=== PATIENT | male | born 1960 | race Caucasian/White ===

== ENCOUNTER 2018-07-29 10:02 | Inpatient (IN) | payer BC ==
[~2018-07-29] VITALS: Ht 172.7 cm; Wt 91.2 kg
[2018-07-29] MEDS ORDERED: ALTEPLASE 50 MG/VIAL (29 MILLION IU) IV ONE ×2 (10:15)
[2018-07-29] MEDS ORDERED: ATENOLOL50 MG PO (10:29)
[2018-07-29] MEDS ORDERED: LANTUS 3ML100 UNITS/ SQ (10:29)
[2018-07-29] MEDS ORDERED: LOVASTATIN20 MG PO (10:29)
[2018-07-29] MEDS ORDERED: GLIPIZIDE10 MG PO (10:29)
[2018-07-29] MEDS ORDERED: METFORMIN HCL500 MG PO (10:29)
[2018-07-29] MEDS ORDERED: METOPROLOL SUCC50 MG PO (10:29)
[2018-07-29] MEDS ORDERED: ESIDRIX25 MG PO (10:29)
[2018-07-29 10:31] LABS: BASOPHILS # (AUTO) 0.1 (0.0-0.1); BASOPHILS % 0.5 % (0.0-1.0); EOSINOPHILS # (AUTO) 0.1 (0.0-0.4); EOSINOPHILS % 0.6 % (0.0-6.0); HEMOGLOBIN 14.5 g/dL (14.0-18.0); LYMPHOCYTES # (AUTO) 2.2 (1.0-3.2); LYMPHOCYTES % 12.8 % (18.0-39.1); MEAN CORPUSCULAR HEMOGLOBIN 28.4 pg (28-32); MEAN CORPUSCULAR VOLUME 86.1 fL (81-99); MONOCYTES # (AUTO) 1.3 (0.2-0.8); MONOCYTES % 7.6 % (4.4-11.3); NEUTROPHILS # (AUTO) 13.2 (2.1-6.9); NEUTROPHILS % 77.7 % (38.7-80.0); PLATELET COUNT 379 x10e3/uL (140-360); RED BLOOD COUNT 5.11 x10e6/uL (4.3-5.7); RED CELL DISTRIBUTION WIDTH 12.2 % (11.7-14.4)
--- NOTE | 2018-07-29 10:40 | Diagnostic Imaging Report ---
History:Slurred speech, left side weakness Comparison studies:None Technique: Axial images were obtained from the skull base to the vertex. Coronal and sagittal images reconstructed from the axial data. Intravenous contrast: None Dose modulation, iterative reconstruction, and/or weight based adjustment of the mA/kV was utilized to reduce the radiation dose to as low as reasonably achievable. Findings: Scalp/skull: No abnormalities. Extra-axial spaces: No masses. No fluid collections. Brain sulci: Age-appropriate. Ventricles: Age-appropriate. No hydrocephalus. Parenchyma: Scattered small hypodensities in the supratentorial white matter are small vessel ischemic changes. No masses, hemorrhage, acute or chronic cortical vascular insults. Sellar/suprasellar region: No abnormalities. Craniocervical junction: Patent foramen magnum. No Chiari one malformation. Incidental findings: Atherosclerotic calcifications in the carotid siphons . Impression: No acute abnormalities. Chronic findings: 1. Mild supratentorial white matter small vessel ischemic changes. Signed by: DR Ben Domínguez M.D. on 07/29/2018 10:37 AM
[2018-07-29 10:41] LABS: INR 1.02; PROTHROMBIN TIME 14.3 seconds (11.9-14.5)
[2018-07-29 10:42] LABS: PARTIAL THROMBOPLASTIN TIME 31.8 seconds (23.8-35.5)
[2018-07-29 10:51] LABS: ALBUMIN 3.7 g/dL (3.5-5.0); ALBUMIN/GLOBULIN RATIO 0.8 (0.8-2.0); ANION GAP 14.9 mmol/L (8-16); CALCIUM 9.4 mg/dL (8.4-10.2); CREATININE, SERUM 1.52 mg/dL (0.72-1.25); POTASSIUM 3.9 mmol/L (3.5-5.1)
[2018-07-29 10:57] LABS: CREATINE KINASE MB 1.6 ng/mL (0-5.0)
[2018-07-29] MEDS ORDERED: ONDANSETRON HCL INJ 2 MG/ML VIAL IV PRN (11:00)
[2018-07-29] MEDS ORDERED: SODIUM CHLORIDE FLUSH 10 ML SYR INJ PRN (11:00)
[2018-07-29] MEDS ORDERED: DEXTROSE 50% SYRINGE 50 ML IV PRN (11:00)
[2018-07-29] MEDS ORDERED: ACETAMINOPHEN 325 MG TAB PO PRN (11:15)
[2018-07-29] MEDS ORDERED: DIPHENHYDRAMINE HCL INJ 50 MG/ML VIAL IV PRN (11:15)
[2018-07-29] MEDS ORDERED: LACTULOSE SYRUP 20 GM/30 ML UDC PO PRN (11:15)
[2018-07-29] MEDS: INSULIN REGULAR, HUMAN 100 UNIT/1 ML 3ML VIAL SQ SCH ×3 (11:30→20:33)
--- OUTSIDE RECORDS SUMMARY | 2018-07-29 11:50 | XMS REPORT ---
Author Author [facility] Address Unknown Phone Unavailable Care Team Providers Care Stone Gang Sawyer Name Role Phone Aiyana HODGES Unavailable Unavailable Problems This patient has no known problems. Allergies, Adverse Reactions, Alerts This patient has no known allergies or adverse reactions. Medications This patient has no known medications. Results Test Description Test Time Test Comments Text Results Atomic Results Result Comments CT BRAIN WO 2018-07-29 10:32:00 [place] [address] Patient Name: ALINE VILLARREAL MR #: [id number] : 1960 Age/Sex: 57/M Req #: [id number] Adm Physician: Ordered by: JING HODGES MD Report #: [id number] Location: ER Room/Bed: Procedure: [id number] CT/CT BRAIN WO Exam Date: 07/29/18 Exam Time: 1005 REPORT STATUS: Signed History:Slurred speech, left side weakness Comparison studie s:None Technique: Axial images were obtained from the skull base to the vertex. Coronal and sagittal images reconstructed from the axial data. Intravenous contrast: None Dose modulation, iterative reconstruction, and/or weight based adjustment of the mA/kV was utilized to reduce the radiation dose to as low as reasonably achievable. Findings: Scalp/skull: No abnormalities. Extra-axial spaces: No masses. No fluid collections. Brain sulci: Age-appropriate. Ventricles: Age-appropriate. No hydrocephalus. Parenchyma: Scattered small hypodensities in the supratentorial white matter are small vessel ischemic changes. No masses, hemorrhage, acute or chronic cortical vascular insults. Sellar/suprasellar region: No abnormalities. Craniocervical junction: Patent foramen magnum. No Chiari one malformation. Incidental findings: Atherosclerotic calcifications in the carotid siphons . Impression: No acute abnormalities. Chronic findings: 1. Mild supratentorial white matter small vessel ischemic changes. Signed by: DR Ben Domínguez M.D. on 07/29/2018 10:37 AM Dictated By: BEN BULLARD MD [id number] Transcribed By: MITCHELL on 07/29/18 1037 COPY TO: JING HODGES MD
[2018-07-29 12:00] VITALS: BP 148/64
[2018-07-29] MEDS ORDERED: ASPIRIN 325 MG TAB PO ONE ×2 (12:00→15:45)
[2018-07-29] MEDS ORDERED: GADOBENATE DIMEGLUMINE 1 ML IV ONE (12:27)
[2018-07-29] MEDS ORDERED: SODIUM CHLORIDE 0.9% 50ML 50 ML ONE (12:27)
[2018-07-29 14:46] VITALS: BP 148/64
--- NOTE | 2018-07-29 14:53 | Diagnostic Imaging Report ---
History: Slurred speech, right-sided numbness Comparison studies: CT head 07/29/2018 Technique: Pre-contrast: Sagittal T2; axial T1-IR, MPGR, DWI, T2 FLAIR. Post-contrast: axial and coronal T1. 2-D cervical and 3-D intracranial [id number] MRA's . Power injected MRA of the neck Intravenous contrast: 20 cc of MultiHance Findings: Brain: Scalp: No abnormal signal. No masses. Bone marrow: Normal in signal intensity. Brain sulci: Mildly prominent . Ventricles: Normal in size . No hydrocephalus. Parenchyma: Restricted diffusion is seen at the left inferior precentral gyrus without significant FLAIR signal intensity abnormality. Scattered T2/flair periventricular and deep white matter hyperintensities. No masses or hemorrhage. Suprasellar region: No abnormalities. Craniocervical junction: No abnormalities. Patent foramen magnum. No Chiari one malformation. Vessels: Normal flow-voids in the arteries and sinuses. Cervical MRA: Carotid arteries: No flow abnormalities . Vertebral arteries: Patent right. No enhancement or flow of the left vertebral artery . Intracranial MRA: Internal carotid arteries: No flow abnormalities . Patent ACAs and MCAs Vertebrobasilar circulation: No flow abnormalities . 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 Anatomical variants: Acom: Visualized. Pcoms: Visualized bilaterally. Vertebral arteries: Patent right. IMPRESSION: Brain: 1. Acute infarct in the left inferior precentral gyrus 2. No intracranial hemorrhage, mass effect or herniation. 3. Mild chronic microvascular ischemic changes of the white matter Cervical and intracranial MRAs: 1. No flow or enhancement of the left vertebral artery. The remaining MRA neck and normal 2. Normal MRA of the [place] Signed by: DR Ben Domínguez M.D. on 07/29/2018 2:49 PM
--- NOTE | 2018-07-29 15:12 | History and Physical ---
PRIMARY CARE PHYSICIAN: Dr. Arpit Wing. CHIEF COMPLAINT: Difficulty moving the right arm and facial paralysis on the right side. HISTORY OF PRESENT ILLNESS: The patient is a 57-year-old man. He has a history of diabetes. He uses insulin at home. He woke up this morning around 9 a.m. with difficulty moving his right arm. He also noticed a facial droop and some difficulty speaking. He denied any headache. He did not have any chest pain. He denies any prior incidence of strokes. He has never had any heart disease that he knows. He has never been in a hospital before. He was evaluated in the emergency department. He had a CTA that showed no active disease. He was felt not to be a candidate for thrombolytics because of his unclear onset of the timing because of the vague time course and waking up with the symptoms. PAST MEDICAL HISTORY 1. Diabetes. 2. No prior history of heart disease or strokes. SOCIAL HISTORY: The patient has never been a smoker. He is not a drinker. ALLERGIES: THE PATIENT HAS NO KNOWN DRUG ALLERGIES. FAMILY HISTORY: Noncontributory. REVIEW OF SYSTEMS: There is no fever. He has no headache or neck pain. He has no chest pain. He has no difficulty breathing. He is not complaining of any abdominal pain. There is no nausea or vomiting. There is no leg edema. He does complain of difficulty moving his right arm and some difficulty speaking. PHYSICAL EXAMINATION VITAL SIGNS: The patient is afebrile. The vital signs are stable. HEENT: Shows no facial swelling or erythema. The nasal mucosa is normal. The oropharynx is normal. LYMPHATIC: Shows no submandibular, cervical or supraclavicular adenopathy. CARDIAC: Reveals a regular rate and rhythm with a normal S1 and S2. There are no murmurs or rubs. RESPIRATORY: Auscultation of lungs shows clear breath sounds bilaterally. There is no wheezing. ABDOMEN: Soft, nontender. There is no rebound or guarding. EXTREMITIES: Show no leg edema or calf tenderness. There is no cyanosis or clubbing. SKIN: No rashes. NEUROLOGIC: Show partial paralysis of the right upper extremity and a right central facial droop. He also has some dysarthria. IMPRESSION 1. Acute left middle cerebral artery stroke. 2. Diabetes. 3. Acute kidney injury. 4. Elevated troponin. PLAN 1. The patient will begin antiplatelet therapy. 2. Neurology consultation. 3. Echocardiogram and carotid Doppler studies. 4. Cardiology consultation. 5. Lipid analysis. 6. Continue current diabetic regimen. Job#: [id number] RUDI
[2018-07-29] MEDS ORDERED: HEPARIN 25,000 UNIT/D5W 250ML 250 ML IV SCH ×2 (16:00→23:45)
[2018-07-29 16:45] VITALS: BP 136/65
[2018-07-29] MEDS: FAMOTIDINE 20 MG TAB PO SCH (16:55)
[2018-07-29] MEDS: GLIPIZIDE 5 MG TAB PO SCH (16:55)
[2018-07-29] MEDS: METOPROLOL SUCCINATE 50 MG TAB XL PO SCH (16:55)
[2018-07-29] MEDS: METFORMIN HCL 500 MG TAB PO SCH (16:55)
--- NOTE | 2018-07-29 17:22 | Diagnostic Imaging Report ---
History: Slurred speech, right-sided numbness Comparison studies: CT head 07/29/2018 Technique: Pre-contrast: Sagittal T2; axial T1-IR, MPGR, DWI, T2 FLAIR. Post-contrast: axial and coronal T1. 2-D cervical and 3-D intracranial itdt-gs-[id number] MRA's . Power injected MRA of the neck Intravenous contrast: 20 cc of MultiHance Findings: Brain: Scalp: No abnormal signal. No masses. Bone marrow: Normal in signal intensity. Brain sulci: Mildly prominent . Ventricles: Normal in size . No hydrocephalus. Parenchyma: Restricted diffusion is seen at the left inferior precentral gyrus without significant FLAIR signal intensity abnormality. Scattered T2/flair periventricular and deep white matter hyperintensities. No masses or hemorrhage. Suprasellar region: No abnormalities. Craniocervical junction: No abnormalities. Patent foramen magnum. No Chiari one malformation. Vessels: Normal flow-voids in the arteries and sinuses. Cervical MRA: Carotid arteries: No flow abnormalities . Vertebral arteries: Patent right. No enhancement or flow of the left vertebral artery . Intracranial MRA: Internal carotid arteries: No flow abnormalities . Patent ACAs and MCAs Vertebrobasilar circulation: No flow abnormalities . 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 Anatomical variants: Acom: Visualized. Pcoms: Visualized bilaterally. Vertebral arteries: Patent right. IMPRESSION: Brain: 1. Acute infarct in the left inferior precentral gyrus 2. No intracranial hemorrhage, mass effect or herniation. 3. Mild chronic microvascular ischemic changes of the white matter Cervical and intracranial MRAs: 1. No flow or enhancement of the left vertebral artery. The remaining MRA neck and normal 2. Normal MRA of the [place] Signed by: DR Ben Domínguez M.D. on 07/29/2018 5:19 PM
--- NOTE | 2018-07-29 17:22 | Diagnostic Imaging Report ---
History: Slurred speech, right-sided numbness Comparison studies: CT head 07/29/2018 Technique: Pre-contrast: Sagittal T2; axial T1-IR, MPGR, DWI, T2 FLAIR. Post-contrast: axial and coronal T1. 2-D cervical and 3-D intracranial [id number] MRA's . Power injected MRA of the neck Intravenous contrast: 20 cc of MultiHance Findings: Brain: Scalp: No abnormal signal. No masses. Bone marrow: Normal in signal intensity. Brain sulci: Mildly prominent . Ventricles: Normal in size . No hydrocephalus. Parenchyma: Restricted diffusion is seen at the left inferior precentral gyrus without significant FLAIR signal intensity abnormality. Scattered T2/flair periventricular and deep white matter hyperintensities. No masses or hemorrhage. Suprasellar region: No abnormalities. Craniocervical junction: No abnormalities. Patent foramen magnum. No Chiari one malformation. Vessels: Normal flow-voids in the arteries and sinuses. Cervical MRA: Carotid arteries: No flow abnormalities . Vertebral arteries: Patent right. No enhancement or flow of the left vertebral artery . Intracranial MRA: Internal carotid arteries: No flow abnormalities . Patent ACAs and MCAs Vertebrobasilar circulation: No flow abnormalities . origin of the right RN CLINICAL REVIEW. Patent bilateral tool maker bench. Anatomical variants: Acom: Visualized. Pcoms: Visualized bilaterally. Vertebral arteries: Patent right. IMPRESSION: Brain: 1. Acute infarct in the left inferior precentral gyrus 2. No intracranial hemorrhage, mass effect or herniation. 3. Mild chronic microvascular ischemic changes of the white matter Cervical and intracranial MRAs: 1. No flow or enhancement of the left vertebral artery. The remaining MRA neck and normal 2. Normal MRA of the [place] Signed by: DR Ben Domínguez M.D. on 07/29/2018 5:19 PM
[2018-07-29 20:00] VITALS: BP 117/72
[2018-07-29 20:30] VITALS: BP 117/72
[2018-07-29] MEDS: SIMVASTATIN 20 MG TAB PO SCH (20:33)
--- NOTE | 2018-07-29 22:47 | Consultation ---
CARDIOLOGY CONSULTATION DATE OF CONSULTATION: July 29, 2018 ADMITTING PHYSICIAN: Dago Butt MD Thank you Dr. Dago Butt for this cardiac consultation. I have been called for interventional cardiology at [facility]. DIAGNOSES 1. Acute cerebrovascular accident, left middle cerebral artery region, right-sided weakness of the arm and some difficulty in speech. 2. History of type II diabetes mellitus. 3. History of hypertension. 4. Hyperlipidemia. 5. Troponin is 2.5, abnormal electrocardiogram. Non-Q myocardial infarction, acute. Mr. Shaun Lamb is a 57-year-old gentleman, able to talk, but the difficulty is he has got some dysarthria and the patient states he woke up this morning, found some weakness in the right arm and also difficulty to speak. Patient has no chest pain, no shortness of breath. No symptoms of any acute myocardial infarction, angina pectoris. Symptoms are predominantly neurological and patient has no history of stroke and no history of myocardial infarction. PAST MEDICAL HISTORY: He has a history of hypertension, hyperlipidemia, type II diabetes mellitus. His type II diabetes mellitus is there for last 20 years. SOCIAL HISTORY: He is working, but is not able to describe kind of work at this time. The patient is . is not here at this time. REVIEW OF SYSTEMS: Patient does not complain of chest pain. No shortness of breath. Patient has no history of thyroid problems or major surgeries. PHYSICAL EXAMINATION HEART: Normal. LUNGS: Normal. ABDOMEN: Normal. NEUROLOGIC: Weak in the right arm, but he is able to move the right arm and right leg. Patient has got some dysarthria, upper motor neuron; patient's right-sided face, but very weak at this time, but he is able to move the tongue at this time. DIAGNOSTIC DATA: His brain scan showed left-sided stroke. LAB DATA: Troponin is 2.5 and he has got a class III renal failure and patient's WBC count is slightly elevated. Hemoglobin is normal. IMPRESSION AND PLAN: At this time, I agree with medication like aspirin, anti-cholesterol medicine, and also add metoprolol. We will continue all the medications ordered by primary physician. He needs anticoagulant. I will wait for the neurologist to clear these anticoagulants. In the meantime, patient has no symptoms cardiac woodall. No chest pain. No breathing problem _ but EKG shows anterolateral ischemia. So, I will continue follow the patient, but quite stable and patient is in room #111, we will keep him here. I ordered a series of troponin and EKG , In the meantime, I will wait for the neurologist's opinion and possible starting on anticoagulants. Thank you again for this consultation. Job#: [id number] NASH OLIVERA
[2018-07-30] VITALS (7 sets, daily range): BP systolic 98–144; BP diastolic 66–81
[2018-07-30 06:23] LABS: ALBUMIN 2.9 g/dL (3.5-5.0); ALBUMIN/GLOBULIN RATIO 0.7 (0.8-2.0); ANION GAP 11.8 mmol/L (8-16); CREATININE, SERUM 1.26 mg/dL (0.72-1.25); POTASSIUM 3.8 mmol/L (3.5-5.1)
[2018-07-30 06:59] LABS: CHOL/HDL RATIO 3.7 (3.9-4.7)
[2018-07-30] MEDS: FAMOTIDINE 20 MG TAB PO SCH ×2 (08:20→16:29)
[2018-07-30] MEDS: GLIPIZIDE 5 MG TAB PO SCH ×2 (08:20→16:29)
[2018-07-30] MEDS: METOPROLOL SUCCINATE 50 MG TAB XL PO SCH ×2 (08:55→16:31)
[2018-07-30] MEDS: HYDROCHLOROTHIAZIDE 25 MG TAB PO SCH (08:55)
[2018-07-30] MEDS: METFORMIN HCL 500 MG TAB PO SCH ×2 (08:55→16:29)
[2018-07-30] MEDS: ASPIRIN 325 MG TAB EC PO SCH (08:55)
[2018-07-30] MEDS: INSULIN REGULAR, HUMAN 100 UNIT/1 ML 3ML VIAL SQ SCH ×4 (08:56→21:02)
[2018-07-30] MEDS ORDERED: INSULIN DETEMIR 100 UNIT/ML PEN SQ SCH (09:00)
--- NOTE | 2018-07-30 13:42 | Consultation ---
DATE OF CONSULTATION: July 30, 2018 NEUROLOGY CONSULTATION HISTORY OF PRESENT ILLNESS: Mr. Lamb is a 57-year-old right hand dominant man with past medical history significant for hypertension, a prior history of hyperlipidemia, and insulin-dependent diabetes mellitus admitted to [facility] on July 29, 2018, with a stroke. Mr. Lamb was last seen normal sometime between 2200 and 2230 on July 28, 2018. Upon awakening at 0900 on July 29, 2018, the patient experienced difficulty talking which is further described as dysarthria and expressive aphasia. Mr. Lamb endorses numbness over the right side of the face as well as in his right hand and arm. The patient does not report a visual field cut or other disturbance, facial droop, hemiparesis, gait or balance impairment, dizziness, or confusion. At the encouragement of his , Mr. Lamb presented to the emergency center at [facility] for further evaluation of his symptoms. Upon admission to the emergency center, the patient had a temperature of 99.6 with a blood pressure of 143/92 mmHg and a pulse of 84 beats per minute. His neurological examination was significant for mild dysarthria, mild right-sided facial weakness, altered sensation to light touch over the right side of the face and arm, and altered sensation to pinprick over the right side of the face and right arm. An NIH stroke scale score of 4 was given with 1 point given for partial hemianopsia, 1 point given for facial palsy, 1 point given for sensory loss, and 1 point given for dysarthria. While in the emergency center, a CT of the brain without contrast was performed. There was no evidence of recent large territorial ischemia or hemorrhage on this study. Routine laboratory data was drawn while the patient was in the emergency center. Mr. Lamb was found to have an elevated troponin. Therefore, the patient was admitted to [facility] for further evaluation and treatment of a probable stroke as well as a myocardial infarction. REVIEW OF SYSTEMS: Dysarthria, expressive aphasia, right facial numbness, numbness of the right hand and arm. Otherwise, a 12 point review of systems is negative. PAST MEDICAL HISTORY: Hypertension, history of hyperlipidemia, insulin-dependent diabetes mellitus type 2, possible chronic kidney disease. PAST SURGICAL HISTORY: None. PAST HOSPITALIZATIONS: Hyperglycemia. FAMILY MEDICAL HISTORY: The patient's paternal and maternal grandparents are . Their medical histories are unknown. The patient's father is from complications of diabetes mellitus. The patient's mother is alive. She has diabetes mellitus. Mr. Lamb has 6 siblings, 2 brothers and 4 sisters, all of whom are living. Both brothers have diabetes mellitus. It is possible 1 or 2 of his sisters have diabetes mellitus as well. Mr. Lamb has 1 child, a son, who is alive and healthy. SOCIAL HISTORY: The patient is . He is employed as a aircraft maintenance manager. Mr. Lamb does not endorse current or prior tobacco, alcohol, or recreational drug use. HOME MEDICATIONS: Atenolol 50 mg by mouth twice daily, hydrochlorothiazide 25 mg by mouth daily, lovastatin 20 mg by mouth twice daily, glipizide 10 mg by mouth twice daily, Lantus 50 units subcutaneously daily, metformin 1000 mg by mouth twice daily, metoprolol 50 mg by mouth twice daily. ALLERGIES: NO KNOWN DRUG ALLERGIES. NO KNOWN FOOD ALLERGIES. NO KNOWN ALLERGIES TO LATEX. NO KNOWN ALLERGIES TO IODINE OR OTHER CONTRAST MATERIALS. PHYSICAL EXAMINATION: VITAL SIGNS: Height 68 inches, weight 195 pounds. BMI 29.6 kg per meter squared. Blood pressure 125/80 mmHg. Pulse 94 beats per minute. Respiratory rate 19 breaths per minute. Oxygen saturation 99% on room air. GENERAL: The patient is awake and alert, does not appear distressed. Overweight. HEENT: Normocephalic, atraumatic. Pupils are equal, round, and reactive to light. Moist mucous membranes. NECK: Supple. No appreciable thyromegaly. No appreciable carotid bruits. CARDIOVASCULAR: S1, S2, regular rate and rhythm. No murmurs, rubs, or gallops. RESPIRATORY: Clear to auscultation bilaterally. No wheezes, rhonchi, or rales. EXTREMITIES: The skin is warm and dry. No clubbing, cyanosis, or edema. The posterior tibial and dorsalis pedis pulses are 1+ and symmetric. SKIN: No rashes or lesions. NEUROLOGIC: Memory/Attention: The patient is awake and alert, oriented to person, place, time, and situation. Cranial Nerves: Cranial nerve 1--Not tested. Cranial nerve 2, 3, 4, and 6--Pupils are equal and round, react briskly to light (from 4 mm to 2 mm). Extraocular movements intact. No nystagmus. Cranial nerve 5--Sensation to light touch is intact in the bilateral V1 through V3 distributions. Sensation to pinprick is decreased over the right V2 and V3 distributions. Strength of the temporalis and masseter muscles is within normal limits. Cranial nerve 7--The face is asymmetric on the right as are all facial movements. There is mild right central facial weakness. Cranial nerve 8--Hearing is intact to finger rub bilaterally. Cranial nerve 9, 10--The soft palate elevates equally and symmetrically. Cranial nerve 11--Normal strength of the bilateral sternocleidomastoid and trapezius muscles. Cranial nerve 12--The tongue protrudes midline and moves symmetrically from side to side. Strength: Bulk is normal. Strength is 5/5 in the bilateral deltoids, biceps, triceps, wrist flexors and extensors, finger flexors and extensors, intrinsic hand muscles, hip flexors, knee flexors and extensors, ankle dorsiflexion and plantar flexion, and intrinsic foot muscles. Tone is normal. DTRs: Deep tendon reflexes are 2+ and symmetric at the triceps, biceps, brachioradialis, and patellas. Deep tendon reflexes are trace and symmetric at the Achilles. Plantar responses are flexor bilaterally. Sensation: Sensation is diminished to light touch and pinprick over the right arm. Otherwise, sensation to light touch and pinprick is intact in the left arm and both legs. Cerebellar: Oelkse-[id number] and heel-rees movements are intact without dysmetria or other impairment. Gait: Deferred. Speech: Spontaneous speech is mildly dysarthric with moderate expressive aphasia. Repetition is intact. Involuntary Movements: None. Pronator Drift: Subtle in the right arm. LABORATORY DATA: The patient's most recent comprehensive metabolic panel is significant for a creatinine of 1.26, GFR of 59, serum glucose of 157, albumin of 2.9, globulin of 4.2, and an albumin to globulin ratio of 0.7. Creatine kinase 65. CK-MB 1.60. Troponin I 2.036, 2.397, 2.294, 2.415. Total cholesterol 121, triglycerides 120, LDL cholesterol 64, HDL cholesterol 33. Hemoglobin A1c 13.3. The CBC with differential and platelets reveals a white blood cell count of 16.94 with 77.7% neutrophils, 12.8% lymphocytes, 7.6% monocytes, 0.6% eosinophils, and 0.5% basophils. The hemoglobin and hematocrit are 14.5 and 44.0, respectively. The platelet count is 379. PT 14.3. INR 1.02. PTT 31.8, 47.2, 54.8. DIAGNOSTIC STUDIES: Electrocardiogram July 29, 2018: Atrial fibrillation at [address] of the brain without contrast July 29, 2018: On my review, there is no evidence of recent large territorial ischemia, hemorrhage, mass, or mass effect. Cerebral volumes are appropriate for age. There are findings compatible with mild to moderate chronic small-vessel ischemic disease. MRI of the brain without contrast July 29, 2018: On my review, there is an acute ischemic infarct in the left inferior precentral gyrus. There is no evidence of hemorrhage, mass, or mass effect. There is no evidence of remote ischemia. Cerebral volumes are appropriate for age. There are scattered nonspecific T2/FLAIR hyperintense foci of the supratentorial deep white matter compatible with mild chronic small-vessel ischemic disease. MRA of the brain and neck without contrast July 29, 2018: On my review, the MRA of the [place] is normal. The MRA of the neck reveals occlusion of the left vertebral artery. The right vertebral artery is patent . Otherwise, the MRA of the neck is within normal limits. Bilateral carotid artery ultrasound with Doppler July 30, 2018: Atherosclerosis without hemodynamically significant stenosis at the bilateral carotid bulbs and bifurcations. ASSESSMENT AND PLAN: Mr. Lamb is a 57-year-old right hand dominant man with past medical history significant for hypertension, hyperlipidemia, insulin-dependent diabetes mellitus type 2, and newly diagnosed atrial fibrillation admitted to [facility] with an acute ischemic stroke in the left middle cerebral artery distribution as well as a myocardial infarction. The patient's neurological examination is significant for mild dysarthria with moderate expressive aphasia, mild right central facial weakness, very mild weakness of the right hand and arm, and diminished sensation to either light touch or pinprick over the right side of the face and right hand and arm. The patient's laboratory data and other diagnostic studies have been reviewed and are documented above. RECOMMENDATIONS: 1. At present, Mr. Lamb is on a heparin drip for his myocardial infarction. Due to the presence of atrial fibrillation, the patient will require anticoagulation prior to discharge. My recommendation is for Eliquis 5 mg by mouth twice daily for stroke prophylaxis. 2. The patient's blood pressure goal is less than 140/90 mmHg. At present, the patient's blood pressures are at goal. Continue with current medications. Monitor vital signs per unit protocol. 3. The patient's goal total cholesterol is less than 200 with an LDL of less than 70. Mr. Lamb is at goal as far as his cholesterol. Continue with current medications. 4. The patient's goal hemoglobin A1c is 7.0. Mr. Lamb' hemoglobin A1c is 13.3. Continue current home medications. Monitor fingerstick blood glucose and treat with sliding-scale insulin per unit protocol. Tight glycemic control is recommended while the patient is in the hospital. Further adjustment of the patient's diabetes medications is deferred to the primary service. 5. Speech and physical therapy consultations will be ordered. 6. GI prophylaxis with Pepcid 20 mg twice daily with meals. DVT prophylaxis is with a heparin drip at present. 7. Defer treatment of the remaining medical comorbidities to the primary and other services following the patient. Thank you for this consultation. I will continue to follow the patient while he remains in the hospital. TIME SPENT: 70 minutes. Job#: [id number] EV JAROD
[2018-07-30] MEDS: INSULIN DETEMIR 100 UNIT/ML PEN SQ SCH (16:28)
--- NOTE | 2018-07-30 16:51 | Progress Note ---
DATE: July 30, 2018 CARDIOLOGY PROGRESS NOTE The patient was seen in the room on July 30, 2018, and discussed with the at the bedside and also son. DIAGNOSES 1. Acute cerebrovascular accident of left middle cerebral artery region. Please see the computerized tomography scan report and neurology report. 2. Non-Q-wave myocardial infarction. 3. New-onset atrial fibrillation starting at 10:30 p.m. yesterday. 4. Type 2 diabetes mellitus. 5. Hyperlipidemia. Patient pauly woodall has no chest pain. Patient never had any chest pain during this admission, only chest pain in the past. The only thing he mentioned to me on questioning is he had some flatus in the past. EKG and troponin are indicative of non-Q-wave myocardial infarction, possibly embolic in nature. Also, the patient had embolic stroke on the left middle cerebral artery region, which has been discussed with neurology also. At this time, I am going to start him on amiodarone 200 mg p.o. b.i.d. and lisinopril 2.5 mg twice a day. Continue metoprolol. Left ventricular ejection fraction about 35% to 40% by echocardiogram. No significant valvular abnormalities. No pericardial effusion. At this time, pauly woodall only medical treatment, including medications like aspirin and anticholesterol medicine, lisinopril, and amiodarone. However, I am going to start the patient on Eliquis 5 mg p.o. b.i.d., which is concurred by neurology also. Will continue IV heparin. I am not starting any Plavix at this time of aspirin. They elect this combination. He is good enough at this time. In the meantime, I discussed the patient's cardiac prognosis and prognosis is very good at this time. However, will do some nuclear tests to see before leaving the hospital as an outpatient. If any chest pain arises, probably will do angiogram, which is not necessary at this time. Probably, my point of view the patient should be away from work for about 2 weeks or so. Neurology also recommended further treatment for his neurological stroke. At this time, discussed physical therapy rehabilitation from the cardiac point of view also. The patient at this time is stable. Continue to follow the patient. Job#: [id number] RI
[2018-07-30] MEDS ORDERED: HEPARIN 25,000 UNIT/D5W 250ML 250 ML IV SCH (17:30)
[2018-07-30] MEDS: AMIODARONE HCL 200 MG TAB PO SCH (17:42)
[2018-07-30] MEDS: HEPARIN 25,000 UNIT/D5W 250ML 250 ML IV SCH (18:05)
[2018-07-30] MEDS: SIMVASTATIN 20 MG TAB PO SCH (20:57)
[2018-07-31] VITALS (9 sets, daily range): BP systolic 112–157; BP diastolic 65–86
[2018-07-31] MEDS ORDERED: LISINOPRIL 2.5 MG TAB PO ONE (07:30)
[2018-07-31] MEDS: INSULIN REGULAR, HUMAN 100 UNIT/1 ML 3ML VIAL SQ SCH ×2 (08:30→12:30)
[2018-07-31] MEDS: FAMOTIDINE 20 MG TAB PO SCH ×2 (08:30→17:30)
[2018-07-31] MEDS: GLIPIZIDE 5 MG TAB PO SCH (08:30)
[2018-07-31] MEDS: METFORMIN HCL 500 MG TAB PO SCH ×2 (08:30→17:30)
[2018-07-31] MEDS: INSULIN DETEMIR 100 UNIT/ML PEN SQ SCH (09:00)
[2018-07-31] MEDS: AMIODARONE HCL 200 MG TAB PO SCH ×2 (09:50→17:30)
[2018-07-31] MEDS: HYDROCHLOROTHIAZIDE 25 MG TAB PO SCH (09:50)
[2018-07-31] MEDS: ASPIRIN 325 MG TAB EC PO SCH (09:50)
[2018-07-31] MEDS: METOPROLOL SUCCINATE 50 MG TAB XL PO SCH ×2 (09:50→17:30)
[2018-07-31] MEDS: HEPARIN 25,000 UNIT/D5W 250ML 250 ML IV SCH (11:07)
[2018-07-31] MEDS ORDERED: INSULIN LISPRO 100 UNIT/1 ML 3ML VIAL SQ ONE (14:44)
--- NOTE | 2018-07-31 15:11 | Progress Note ---
DATE: July 31, 2018 CARDIOLOGY PROGRESS NOTE The patient was seen in the room. The patient is awake, alert, sitting at bedside. DIAGNOSES 1. Acute cerebrovascular accident of left middle cerebral area. 2. Mild aphasia, and some right arm weakness, improved. 3. Acute Non-Q-wave myocardial infarction. 4. Hypertension. 5. Hyperlipidemia. 6. Type 2 diabetes mellitus. Patient came with difficulty to speak and also weak right arm, it looking better. The neurologist is following the patient very closely and also Dr. Butt. Primary doctor is following the patient closely too. I am involved because patient's enzyme went up to 2.2, still trending down, but still around 2 troponin today. At this time, patient's EKG is normal. No chest pain. He had also developed atrial fibrillation. I put him on amiodarone 200 mg p.o. b.i.d. . My impression probably is more of embolic in nature as the patient has small emboli in the coronary arteries and also CAUSING NM and the cerebrovascular accident. Patient already started on IV heparin in the concurrence with the neurologist tomorrow morning that is Thursday, 8 o'clock. We are going to start Eliquis 5 mg p.o. b.i.d., and then discontinue heparin in the morning and patient at this time stable. This has been discussed well with the patient. Plan at this time is to follow him in the hospital if neurologic improvement and also follow him cardiac point of view. I discussed with Dr. Butt and also neurologist. Job#: [id number] FILEMON OLIVERA
[2018-07-31] MEDS: INSULIN LISPRO 100 UNIT/1 ML 3ML VIAL SQ SCH ×3 (17:30→20:54)
[2018-07-31 18:59] LABS: CHOL/HDL RATIO 3.8 (3.9-4.7)
[2018-07-31 19:20] LABS: FREE T4 (FREE THYROXINE) 0.97 ng/dL (0.9-1.8); THYROID STIMULATING HORMONE 2.737 uIU/mL (0.350-4.940)
[2018-07-31] MEDS: SIMVASTATIN 20 MG TAB PO SCH (20:53)
[2018-07-31] MEDS ORDERED: INSULIN DETEMIR 100 UNIT/ML PEN SQ SCH (21:00)
--- NOTE | 2018-07-31 22:59 | Consultation ---
DATE OF CONSULTATION: July 31, 2018 ENDOCRINE CONSULTATION PATIENT OF: Dr. Butt. Thank you very much for referring this patient. HISTORY OF PRESENT ILLNESS: This is a 57-year-old gentleman who was referred to me for evaluation of diabetes mellitus. Patient reportedly is a known diabetic for almost 20 years and he takes a combination of oral hypoglycemics; glipizide, metformin, and Lantus 50 at bedtime. Patient came to the hospital with history of aphasia, found to have an acute CVA in the distribution of left MCA. On further evaluation, patient was also found to have high troponin levels and possible myocardial infarction. He is also in atrial fibrillation. Patient tells me he has multiple complications related to severe diabetic, sensorimotor neuropathy. He also has diabetic retinopathy. Patient is a nonsmoker. He has very strong family history of heart disease as well as diabetes. He is not a smoker. PHYSICAL EXAMINATION VITAL SIGNS: Today, the patient is alert, awake, little bit apprehensive. His heart rate is around 70. His blood pressure is 146/86. HEENT: Essentially unremarkable. Thyroid is palpable. Clinically, he is near euthyroid. CHEST: Bilateral vesicular breathing. He has bilateral bronchospasm. CARDIAC: Both 1st and 2nd heart sounds. There is no 3rd or 4th heart sound. Ejection sound 3/6. NEUROLOGICAL: Patient has evidence of diabetic sensorimotor neuropathy in both lower extremities. He is slightly aphasic as well. LABORATORY DATA: His Blood sugars have been ranging between 250-300 range. Hemoglobin A1c is significantly elevated at 13.3. CLINICAL IMPRESSION 1. Diabetes mellitus type 2, uncontrolled with complications. 2. Acute cerebrovascular accident with aphasia. 3. Coronary artery disease. 4. Status post myocardial infarction. 5. Hypertension. 6. Atrial fibrillation. PLAN: The plan at this time is to do a glycohemoglobin thyroid function test, monitor his blood sugars closely, and adjust insulin dose. We will stop glipizide and start him on Humalog 3 times a day along with Lantus 50 at bedtime. Thank you again for referring this patient. I will be following this patient with you. Job#: [id number] NASH
[2018-08-01] VITALS: BP 117/76
[2018-08-01 04:00] VITALS: BP 118/57
[2018-08-01] MEDS ORDERED: LISINOPRIL 2.5 MG TAB PO SCH (06:00)
[2018-08-01] MEDS: INSULIN LISPRO 100 UNIT/1 ML 3ML VIAL SQ SCH ×4 (07:30→11:30)
[2018-08-01 08:00] VITALS: BP 111/75
[2018-08-01] MEDS: FAMOTIDINE 20 MG TAB PO SCH (08:43)
[2018-08-01] MEDS: AMIODARONE HCL 200 MG TAB PO SCH (08:45)
[2018-08-01] MEDS: METOPROLOL SUCCINATE 50 MG TAB XL PO SCH (08:45)
[2018-08-01] MEDS: ASPIRIN 325 MG TAB EC PO SCH (08:45)
[2018-08-01] MEDS: HYDROCHLOROTHIAZIDE 25 MG TAB PO SCH (08:45)
[2018-08-01] MEDS: METFORMIN HCL 500 MG TAB PO SCH (08:45)
[2018-08-01] MEDS: APIXABAN 5 MG TABLET PO SCH ×2 (08:45→09:26)
[2018-08-01 08:47] VITALS: BP 111/75
[2018-08-01 13:48] VITALS: BP 121/71
--- NOTE | 2018-08-01 22:09 | Discharge Summary ---
DISCHARGE DIAGNOSES 1. Acute left middle cerebral artery infarct. 2. Atrial fibrillation. 3. Non-Q-wave myocardial infarction. CONSULTING PHYSICIANS 1. Dr. Resendez of cardiology. 2. Dr. Espinoza of neurology. DISCHARGE MEDICATIONS 1. Lantus insulin 50 units subcutaneous nightly. 2. Lispro insulin as needed before meals. 3. Lovastatin 20 mg p.o. b.i.d. 4. Metformin 1000 mg p.o. b.i.d. 5. Atenolol 50 mg p.o. b.i.d. 6. Amiodarone 200 mg p.o. daily. 7. Eliquis 5 mg p.o. b.i.d. RADIOGRAPHIC DATA 1. MRI of the brain showed acute infarct in the left inferior precentral gyrus. 2. MRI of the brain showed absent flow to the left vertebral artery, but, otherwise, normal circulation. 3. Echocardiogram showed a mildly decreased ejection fraction of 45% to 50% with concentric left ventricular hypertrophy and mild mitral regurgitation. 4. Carotid duplex showed some atherosclerosis without significant impairment of flow in the bulb and bifurcation bilaterally. HISTORY OF PRESENT ILLNESS: The patient is a 57-year-old man. He has a history of diabetes. He came in with a sudden onset, he awoke in the morning with difficulty moving his right arm, facial droop, impaired speech. He did not complain of headache or fevers. He did not complain of abnormal gait. HOSPITAL COURSE: The patient was admitted. He was not a candidate for thrombolytics because he awoke with the symptoms and the time of onset was not clear. He underwent a subsequent evaluation that showed a left middle cerebral artery infarct, as well as atrial fibrillation. He was seen in consultation by neurology and by cardiology. He was started on amiodarone, as well as Eliquis. The patient was started with speech therapy, as well as physical therapy. The movement in his right arm returned, although he still has some impairment of his speech. He was seen by endocrinology and his insulin regimen was adjusted. DISPOSITION: The patient will be discharged home. He will follow up with Dr. Wing of family medicine, as well as with Dr. Resendez of cardiology. He will also continue speech therapy and on physical therapy as an outpatient. GUANAKO CANCINO MD Job#: [id number] CQ cc:VISH WING MD
--- NOTE | 2018-08-01 22:44 | Progress Note ---
DATE: August 01, 2018 CARDIOLOGY PROGRESS NOTE DIAGNOSES 1. Acute cerebrovascular accident of left-sided middle cerebral area territory, improving right arm weakness; patient still has got aphasia. . 2. Type 2 diabetes mellitus. 3. Hypertension. 4. Non-Q-wave myocardial infarction. 5. Atrial fibrillation. Patient came in with a stroke. Troponin went up to 2.1. EKG does not show any significant changes except anterolateral ischemia. Patient has no chest pain. No congestive heart failure. Echo ejection fraction is 55%. There is no evidence of any clots noted. No significant abnormalities. At this time, we will continue present medications. Patient already started on Eliquis. I will discuss with the neurologist tomorrow and further treatment will be charted out from the cardiac point of view. Patient will continue with medical treatment. No invasive coronary angiogram is planned at this time. Job#: [id number] RTY MTDIan
== END 2018-08-01 15:11 | disposition home or self-care (01) | DRG 64 ==
LOC: ER 10:02 → ERHOLD 11:48 → MED/SURG 11:59
PROVIDERS: ADMIT Internal Medicine Critical Care Medicine; ATTEND Internal Medicine Critical Care Medicine
DX: I63.512 Cerebral infarction due to unspecified occlusion or stenosis of left middle cerebral artery (principal); I21.4 Non-ST elevation (NSTEMI) myocardial infarction; N17.9 Acute kidney failure, unspecified; E11.65 Type 2 diabetes mellitus with hyperglycemia; R47.1 Dysarthria and anarthria; R47.01 Aphasia; I48.91 Unspecified atrial fibrillation; Z79.4 Long term (current) use of insulin; G83.21 Monoplegia of upper limb affecting right dominant side; E11.22 Type 2 diabetes mellitus with diabetic chronic kidney disease; I12.9 Hypertensive chronic kidney disease with stage 1 through stage 4 chronic kidney disease, or unspecified chronic kidney disease; N18.3 Chronic kidney disease, stage 3 (moderate); E78.5 Hyperlipidemia, unspecified; R29.704 NIHSS score 4; E11.42 Type 2 diabetes mellitus with diabetic polyneuropathy; E11.319 Type 2 diabetes mellitus with unspecified diabetic retinopathy without macular edema; Z28.21 Immunization not carried out because of patient refusal
CPT/HCPCS: 36415; 70450; 70544; 70549; 70551; 80053; 80061; 82550; 82553; 82948; 83036; 84439; 84443; 84484; 85025; 85610; 85730; 92523; 93005; 93306; 93880; 96366; 99284

== ENCOUNTER 2018-09-02 10:00 | Outpatient (RCR) | payer BC ==
--- NOTE | 2018-08-24 11:14 | NUR ---
ST NOTE: Pt missed Speech Therapy session after PT sent him to MD office for concern with SOB and leg edema. Will continue to follow pt
[~2018-09-02 10:00] MED LIST: ATENOLOL50 MG PO; ESIDRIX25 MG PO; GLIPIZIDE10 MG PO; LANTUS 3ML100 UNITS/ SQ; LOVASTATIN20 MG PO; METFORMIN HCL500 MG PO; METOPROLOL SUCC50 MG PO
== END 2018-09-06 ==
LOC: PT 10:00
PROVIDERS: ATTEND Internal Medicine Critical Care Medicine
DX: R47.01 Aphasia (principal); Z86.73 Personal history of transient ischemic attack (TIA), and cerebral infarction without residual deficits; R26.89 Other abnormalities of gait and mobility; M62.81 Muscle weakness (generalized)
CPT/HCPCS: 92507 ×3; 92523; 97110 ×10; 97162; 97165; G9162; G9163

== ENCOUNTER → 2018-09-03 | Outpatient (CLI) | payer BC ==
[~2018-09-03] MED LIST changes: +REGADENOSON 0.4 MG/5 ML SYR IV ONE
--- NOTE | 2018-09-14 13:52 | Cardiology Report ---
DATE OF STUDY: September 03, 2018 NUCLEAR GATED MYOCARDIAL PERFUSION SCAN USING LEXISCAN This test was done at the nuclear medicine lab of [facility]. Lexiscan injected 0.4 mg intravenously as a stress agent. Myoview injected 11 mCi for resting protocol and 31.5 mCi for stress protocol. I supervised the test and interpreted this stress test. Abnormal nuclear stress test. Left ventricular global hypokinesia and LV enlargement noted. Left ventricular ejection fraction is 25%. Inferoseptal and apical scar noted. No ischemia noted. Normal study. Job#: [id number]
--- NOTE | 2018-09-14 14:13 | Polysomnography ---
DATE OF STUDY: NO DICTATION, length 0 minutes 1 second. Job#: [id number] EV
== END ==
LOC: NM 07:56
PROVIDERS: ATTEND Internal Medicine Cardiovascular Disease
DX: I21.4 Non-ST elevation (NSTEMI) myocardial infarction (principal); R94.31 Abnormal electrocardiogram [ECG] [EKG]
CPT/HCPCS: 78452; 93017; A9502; J2785

== ENCOUNTER 2018-09-13 09:45 | Outpatient (RCR) | payer BC ==
--- NOTE | 2018-09-09 14:18 | NUR ---
Discharge Summary and Treatment Note Pt is 57 year old male seen in July 2018 hospitalization for CVA-acute ischemic stroke, L MCA, DM with neurological manifest PMH: HTN, insulin dependent DM II, hyperlipidemia. Pt seen today in OP for re-evaluation of language and speech production and treatment as recommended in IP setting. Pt with normal hearing acuity and independent prior level of function. Pt goal of treatment is to communicate well enough to return to work Pain Level before and after treatment 0, pt seen today with no family present. Receptive language WNL, Expressive language:1 para-aphasia noted during 45 minute session in conversation, improved from 5 during evaluation, mild apraxia with words and sentences greatly improved and noted only occasionally during word lengthening task as noted below in goals. Cognition WNL, short term memory improved with recalling target words after timed delays as noted below in goals. Speech/Voice improved with 100% intelligibility of sentences and conversation as noted below in goals. Impression: Improved mild apraxia of speech and ability to produce multisyllabic words, phrases, sentences and conversation. Normal oral motor strength, agility and movement. Detention Goal(s) Pt to accurately communicate with familiar and unfamiliar listeners Short Term Goal(s) 1. Pt to complete diodochokinetic exercises 25 times in 15 seconds- met pt average 27 times in 15 seconds 2. Pt to answer Wh questions with 1 or fewer paraphasias- met 3. Pt to complete word lengthening exercises with 90% accuracy-met with 90% accuracy 4. Pt to read and repeat polysyllabic words and sentences with /s/sh/ consonants with 90% accuracy- met with 95% accuracy 5. Pt to recall 4 words I, 5 min delay, 10 min delay- met with 90% accuracy Discussed pt POC, progress, assessed all of pt's needs have been met with POC and treatment, pt stated members of his family who are unaware that he had a stroke gave no indication that his communication over the holidays was not normal/functional. Pt verbalized with to discontinue therapy and concentrate on OT with fine motor skills. Valentina Sung M.S., CCC-BLACK OFF WORKER 09/09/2018 Skilled Time Spent 60 Minutes Speech and Language Treatment 1 Therapy Discipline Speech Justification for Modifier Comments Expressive Language [place] NOMS level 6 G-codes current G9162 CI goal [id number] d/c [id number] report to be faxed to Dr. Leo Butt
[~2018-09-13 09:45] MED LIST changes: -REGADENOSON 0.4 MG/5 ML SYR IV ONE
[2018-09-30] MEDS ORDERED: Eliquis PO (10:31)
[2018-09-30] MEDS ORDERED: POTASSIUM CHLO20 ME1 PO (10:31)
[2018-09-30] MEDS ORDERED: LOSARTAN POTASS25 MG PO (10:31)
[2018-09-30] MEDS ORDERED: NOVOLOG100 UNITS1 SC (10:31)
[2018-09-30] MEDS ORDERED: AMIODARONE HCL200 MG PO (10:31)
[2018-09-30] MEDS ORDERED: FUROSEMIDE40 MG PO (10:31)
== END 2018-10-07 ==
LOC: OT 09:45
PROVIDERS: ATTEND Internal Medicine Critical Care Medicine
DX: R47.01 Aphasia (principal); I69.898 Other sequelae of other cerebrovascular disease
CPT/HCPCS: 92507; 97110 ×2; 97139 ×2; G9162; G9163; G9164

== ENCOUNTER → 2018-09-30 | Outpatient (CLI) | payer BC ==
[~2018-09-30] VITALS: Ht 170.2 cm; Wt 90.7 kg
[~2018-09-30] MED LIST changes: +AMIODARONE HCL200 MG PO; +Eliquis PO; +FUROSEMIDE40 MG PO; +LOSARTAN POTASS25 MG PO; +NOVOLOG100 UNITS1 SC; +POTASSIUM CHLO20 ME1 PO
[2018-09-30 11:16] LABS: BASOPHILS # (AUTO) 0.1 (0.0-0.1); BASOPHILS % 0.7 % (0.0-1.0); EOSINOPHILS # (AUTO) 0.3 (0.0-0.4); EOSINOPHILS % 2.8 % (0.0-6.0); HEMATOCRIT 39.7 % (38.2-49.6); HEMOGLOBIN 12.5 g/dL (14.0-18.0); LYMPHOCYTES # (AUTO) 1.5 (1.0-3.2); LYMPHOCYTES % 13.7 % (18.0-39.1); MEAN CORPUSCULAR HEMOGLOBIN 25.9 pg (28-32); MEAN CORPUSCULAR HGB CONC 31.5 g/dL (31-35); MEAN CORPUSCULAR VOLUME 82.2 fL (81-99); MONOCYTES # (AUTO) 0.7 (0.2-0.8); MONOCYTES % 6.4 % (4.4-11.3); NEUTROPHILS # (AUTO) 8.4 (2.1-6.9); NEUTROPHILS % 75.9 % (38.7-80.0); PLATELET COUNT 398 x10e3/uL (140-360); RED BLOOD COUNT 4.83 x10e6/uL (4.3-5.7); RED CELL DISTRIBUTION WIDTH 14.4 % (11.7-14.4)
[2018-09-30 11:26] LABS: INR 1.15; PROTHROMBIN TIME 15.7 seconds (11.9-14.5)
[2018-09-30 11:27] LABS: PARTIAL THROMBOPLASTIN TIME 35.6 seconds (23.8-35.5)
[2018-09-30 11:35] LABS: ALBUMIN 3.5 g/dL (3.5-5.0); ANION GAP 14.1 mmol/L (8-16); CALCIUM 8.9 mg/dL (8.4-10.2); CREATININE, SERUM 1.56 mg/dL (0.72-1.25); POTASSIUM 4.1 mmol/L (3.5-5.1)
--- NOTE | 2018-09-30 11:58 | Diagnostic Imaging Report ---
EXAMINATION: PA and lateral views of the chest. COMPARISON: None CLINICAL HISTORY: Preoperative study for heart catheter DISCUSSION: The lungs are well-inflated. There is linear opacity in the lingula compatible with fibrotic change or subsegmental atelectasis. 6 mm nodular opacity projecting over the right lung base has no left-sided correlate. No consolidation, pleural effusion, or pneumothorax. There is mild enlargement of the cardiac silhouette with tortuosity and atherosclerotic calcification of the thoracic aorta. No overt pulmonary edema. No acute osseous abnormality. IMPRESSION: Mild cardiomegaly without pulmonary edema. 6 mm nodular opacity projecting over the right lower lung may represent a nipple shadow. In the absence of a symmetric left-sided nipple shadow, a repeat examination with nipple markers is suggested. Linear scar or subsegmental atelectasis in the lingula. Signed by: Dr. Arpit Jernigan M.D. on 09/30/2018 11:55 AM
--- NOTE | 2018-09-30 14:30 | NUR ---
Notified Sarath Royal RN at Dr. Butt's office of abnormal labs. Sarath Royal RN stated she would let Dr. Butt know about lab values. Sarath Royal RN stated to fax lab results to [place] office.
--- NOTE | 2018-09-30 14:58 | NUR ---
Dr. Butt called back and stated no new orders at this time for patient.
--- NOTE | 2018-09-30 15:07 | NUR ---
Patient notified of rescheduled time for procedure and to arrive at 11am on 10/01/18. Patient verbalized understanding and had no questions at this time.
== END | disposition home or self-care (01) ==
LOC: RAD 05:00 → EDSTATUS 10-01 07:30 → CATH LAB 10-01 10:52
PROVIDERS: ATTEND Internal Medicine Cardiovascular Disease
DX: R07.9 Chest pain, unspecified (principal); Z53.09 Procedure and treatment not carried out because of other contraindication
CPT/HCPCS: 36415; 71046; 80053; 85025; 85610; 85730; 93005

== ENCOUNTER 2018-12-17 06:54 | Observation (INO) | payer BC ==
[2018-12-14 10:23] LABS: BASOPHILS # (AUTO) 0.1 (0.0-0.1); BASOPHILS % 0.9 % (0.0-1.0); EOSINOPHILS # (AUTO) 0.2 (0.0-0.4); EOSINOPHILS % 1.9 % (0.0-6.0); HEMATOCRIT 41.2 % (38.2-49.6); LYMPHOCYTES # (AUTO) 1.2 (1.0-3.2); LYMPHOCYTES % 11.8 % (18.0-39.1); MEAN CORPUSCULAR HEMOGLOBIN 26.1 pg (28-32); MEAN CORPUSCULAR HGB CONC 31.6 g/dL (31-35); MEAN CORPUSCULAR VOLUME 82.7 fL (81-99); MONOCYTES # (AUTO) 1.1 (0.2-0.8); MONOCYTES % 10.3 % (4.4-11.3); NEUTROPHILS # (AUTO) 7.7 (2.1-6.9); NEUTROPHILS % 74.7 % (38.7-80.0); PLATELET COUNT 370 x10e3/uL (140-360); RED BLOOD COUNT 4.98 x10e6/uL (4.3-5.7); RED CELL DISTRIBUTION WIDTH 19.1 % (11.7-14.4)
[2018-12-14 10:31] LABS: INR 1.41; PROTHROMBIN TIME 17.8 seconds (11.9-14.5)
[2018-12-14 10:32] LABS: PARTIAL THROMBOPLASTIN TIME 34.4 seconds (23.8-35.5)
[2018-12-14 10:54] LABS: ALBUMIN 3.3 g/dL (3.5-5.0); ALBUMIN/GLOBULIN RATIO 0.9 (0.8-2.0); ANION GAP 10.9 mmol/L (8-16); CALCIUM 8.7 mg/dL (8.4-10.2); CREATININE, SERUM 2.13 mg/dL (0.72-1.25); POTASSIUM 3.9 mmol/L (3.5-5.1)
--- NOTE | 2018-12-14 11:22 | Diagnostic Imaging Report ---
EXAMINATION: CHEST 2 VIEWS INDICATION: Preoperative radiograph. COMPARISON: Chest radiograph 09/30/2018. FINDINGS: TUBES and LINES: None. LUNGS: Lungs are moderately inflated. Linear opacities are present in the right lower lung and left midlung, which may represent scarring or subsegmental atelectasis. Previously noted nodular opacity is not well-visualized at the right lung base. PLEURA: No pleural effusion or pneumothorax. HEART AND MEDIASTINUM: There is moderate enlargement of the cardiomediastinal silhouette. Atherosclerotic calcification of the aortic arch. Nonspecific mild elevation of the right hemidiaphragm. BONES AND SOFT TISSUES: No acute osseous abnormality. UPPER ABDOMEN: No free air under the diaphragm. IMPRESSION: Moderate cardiomegaly without evidence of pulmonary edema. Previously noted nodular opacity is not well-visualized of the right lung base. If clinically indicated, a follow-up chest radiograph may be obtained. Multifocal subsegmental atelectasis. Signed by: Dr. Marcus Santiago MD on 12/14/2018 11:19 AM
[~2018-12-17] VITALS: Ht 170.2 cm; Wt 90.7 kg
[2018-12-17] VITALS (26 sets, daily range): BP systolic 107–140; BP diastolic 53–95
[2018-12-17] MEDS ORDERED: MIDAZOLAM HCL 2 MG/2 ML VIAL ONE (08:34)
[2018-12-17] MEDS ORDERED: FENTANYL CITRATE/PF 100MCG/2 ML INJ ONE (08:35)
[2018-12-17] MEDS ORDERED: SODIUM CHLORIDE 0.9% 1000ML 1,000 ML ONE (08:35)
[2018-12-17] MEDS ORDERED: HEPARIN SOD/SOD CHLORIDE 2,000 ML ONE (08:35)
[2018-12-17] MEDS ORDERED: IOPAMIDOL 370 MG/ML 200 ML INFUS..BTL INJ ONE (08:35)
[2018-12-17] MEDS ORDERED: LIDOCAINE HCL 2% LOCAL 20 ML VIAL ONE (08:35)
--- NOTE | 2018-12-17 09:58 | NUR ---
0958am Received pt s/o Dr Ramsey [facility] Identiferx2 .ELIAS Bah handoff nurse.(no fix ,via rt Angioseal in place , rt groin intact,down time till 12noon) Remains NPO for transfer to [facility] for Hospitalist admission Dr Mayito Arias and Cardiovascular surgery by Dr Angel. Cody GRIFFIN house Supv. working at [facility] for tele. med surgery bed. Back to baseline orientation. Resp shallow and regular Sat 100% Abdomen soft and non tender denies necessity to defecate or urinate Bilateral pulses present palpable DP and DP Doppler only. Iv infusing well at KV0(Dial a flow) 900cc 0.9 NS 20g left hand No signs of infiltration. Pt received 2 Versed and 50 Fentanyl intra procedure.Family at bedside ,explained POC by Dr Ramsey is PAT . No gross signs of pain,pallor pressure and though had short period [place] intra-procedure as reported by slab stripper nurse Niurka GRIFFIN currently in sinus anai with 1st degee .Denies CP or SOB. Remains NPO till transfer to receiving MD instructions. Zoll monitoring remains in place ,call light by pt side, rails-up, bed in low position. DS/rn
--- NOTE | 2018-12-17 11:55 | NUR ---
[facility], [facility] request info,faxed face sheet and MD orders as requested. House Supv.Cody GRIFFIN was informed . Bed availability requisition in progress by staff Dr Ramsey also expediting transfer. karis/rn
--- NOTE | 2018-12-17 12:05 | NUR ---
1205 Awaiting bed availability Cody lora Supv will followup q2hrs ds/rn
--- NOTE | 2018-12-17 12:06 | Operative Report ---
DATE OF PROCEDURE: SURGEON: Arpit Butt MD PROCEDURE: Left heart catheterization. INDICATION: Acute systolic congestive heart failure and coronary artery disease. COMPLICATIONS: None. ANESTHESIA: Versed, fentanyl, and lidocaine. TECHNIQUE: The right groin was draped and prepped in the usual fashion. The area was anesthetized with lidocaine. Standard Seldinger technique was used to place a 6-Greenlandic sheath into the right femoral artery without difficulty. A JL4 catheter was used to selectively engage the left coronary artery. A 3DRC catheter was used to selectively engage the right coronary artery. A pigtail catheter was used to perform a left ventriculogram and an AngioSeal device was used for closure. There were no complications. RESULTS: As follows: 1. Normal left main trunk. 2. There is a large left anterior descending artery, which gave rise to medium-sized diagonal branch. There was 60% stenosis at the very origin of the left anterior descending artery and 99% stenosis in the mid left anterior descending artery involving the origin of the diagonal branch. 3. There was a medium-sized AV circumflex artery, which gave rise to two large bifurcating obtuse marginal branches. There was 60% narrowing at the very origin of the AV circumflex artery and 70% stenosis in the mid AV circumflex artery. 4. There was 100% occlusion of the proximal right coronary artery. The distal right coronary artery filled by collaterals. 5. There was severe global left ventricular dysfunction with an ejection fraction of 20%. CONCLUSION: The patient has severe three-vessel coronary artery disease with severe global left ventricular dysfunction. It is my recommendation that the patient be referred for evaluation for coronary artery bypass graft. Arpit Butt MD H/MODL /[id number]
--- NOTE | 2018-12-17 13:15 | NUR ---
1315pm returns reviewed POC still awaiting bed disposition. House Supv. Cody aware.No gross problems with pain,pallor,pressor monitor remains sinus anai 1st degree Zoll monitor in place. ds/rn
--- NOTE | 2018-12-17 16:45 | NUR ---
1645pm Called report to Stefano. RN, Tele observation bed. Pt remains in guarded condition. Awaiting bed availability at [facility]. Rt Groin Angioseal site healthy w/o any signs of bleeding. NO gross signs of pain,pallor,pressure Continues to monitor with Zoll and tele box for x2 transportation economics teacher to floor care. Pt ambulance transfer papers and Hospital CD of procedure in white elevalope delivered to floor staff with papers of chart for transfer arrangements tomorrow. He is to be admitted to Hospitalist service Dr Arias and CV surgery service consulted per Dr Butt for potential Bypass surgery for multivessel dz. Family aware of POC and escort pt to ROOM 176, No c/o active CP or SOB remains in SB 1st degree av block. Tolerated po intake and voided w/o c/o. ds/rn
--- NOTE | 2018-12-17 18:15 | NUR ---
Recvd patient from Employment Assistant, AAOX3, assisted him to bed, not in any distress or chest pain, at bed side
--- NOTE | 2018-12-17 19:06 | NUR ---
PATIENT IS A NEW ADMIT. PATIENT IS RESTING COMFORTABLY IN BED. BED IS IN LOWEST POSITION AND CALL NUÑEZ IS WITHIN REACH. WILL CONTINUE TO MONITOR PATIENT.
--- NOTE | 2018-12-17 22:00 | NUR ---
PROFESSIONAL SERVICES SPECIALIST HAS CALLED [facility] TO GET AN UPDATE ON THE PATIENTS TRANSFER. PER [facility] THERE IS STILL NOT AN AVAILABLE BED FOR THE PATIENT.
[2018-12-18 04:32] VITALS: BP 127/78
--- NOTE | 2018-12-18 07:03 | NUR ---
report given to day nurse. patient is resting in bed. call berrios is within reach.
[2018-12-18 08:31] VITALS: BP 120/74
[2018-12-18 08:40] VITALS: BP 120/74
[2018-12-18 12:00] VITALS: BP 134/87
[2018-12-18] MEDS ORDERED: INSULIN LISPRO 100 UNIT/1 ML 3ML VIAL SQ SCH (12:00)
--- NOTE | 2018-12-18 12:16 | NUR ---
SPOKE TO JOE GRIFFIN. HE STATED PT IS TRANSFERRING TO [facility], AND DEVEN PALOMARES IS WORKING ON THIS. HE HAS CONTACTED TRANSFER CENTER AND HAS DONE THE MOT.
--- NOTE | 2018-12-18 12:55 | NUR ---
patient resting in bed, AAOx3, Not in any distress denies any chest pain, Dr Ian Ramsey had rounds said, patient is stable to transfer to [facility]
[2018-12-18] MEDS ORDERED: POTASSIUM CHLORIDE 20 MEQ TAB CR PO SCH (13:00)
[2018-12-18] MEDS ORDERED: FUROSEMIDE 40 MG TAB PO SCH (13:00)
[2018-12-18] MEDS ORDERED: LOSARTAN POTASSIUM 25 MG TAB PO SCH (13:00)
[2018-12-18] MEDS ORDERED: AMIODARONE HCL 200 MG TAB PO SCH (13:00)
--- NOTE | 2018-12-18 13:16 | NUR ---
Report called to Nurse Ana @ [facility]
--- NOTE | 2018-12-18 15:23 | History and Physical ---
CHIEF COMPLAINT: Shortness of breath. HISTORY OF PRESENT ILLNESS: The patient is a 58-year-old with known congestive heart failure and an ejection fraction of 20%, was admitted electively for cardiac catheterization yesterday. The catheterization demonstrates severe three-vessel coronary artery disease with an ejection fraction of 20%. PAST MEDICAL HISTORY: Significant for: 1. Diabetes mellitus. 2. Coronary artery disease. 3. Congestive heart failure. 4. Paroxysmal atrial fibrillation. MEDICATIONS: Current medications at home include: 1. Amiodarone. 2. Atenolol. 3. Furosemide. 4. Insulin. 5. Losartan. 6. Simvastatin. SOCIAL HISTORY: The patient does not drink and does not smoke. FAMILY HISTORY: There is no family history of coronary artery disease. PHYSICAL EXAMINATION: GENERAL: The patient is a well-developed, well-nourished male, in no distress. VITAL SIGNS: Include a temperature of 96.4, blood pressure 120/74, and pulse of 63. HEAD, EYES, EARS, NOSE, AND THROAT: The patient's cranium is normocephalic and atraumatic. Extraocular muscles were intact. NECK: Supple. No jugular venous distention. No carotid bruits. CHEST: Clear to auscultation and percussion. CARDIAC: Demonstrated normal S1 and S2 with a short 2/6 systolic murmur. ABDOMEN: Demonstrated good bowel sounds masses. EXTREMITIES: 2+ edema bilaterally. NEUROLOGIC: The patient is alert and oriented x3. Cranial nerves II through XII are intact. Motor strength is intact in all the limbs. TELEMETRY: The patient's telemetry demonstrated normal sinus rhythm. IMPRESSION AND PLAN: The patient is a 58-year-old with severe three-vessel coronary artery disease and an ejection fraction of 20%. The patient is currently doing well with no dyspnea and no chest pain. Arrangements are being made to transfer the patient to [facility] for coronary artery bypass grafting. MD ANGELO Camarena/MODL /[id number]
[2018-12-18] MEDS ORDERED: APIXABAN 5 MG TABLET PO SCH (17:00)
[2018-12-18] MEDS ORDERED: ATENOLOL 50 MG TAB PO SCH (17:00)
--- NOTE | 2018-12-18 17:06 | NUR ---
patient transferred to [facility], EMS here to pick patient, patient stable
[2018-12-18] MEDS ORDERED: SIMVASTATIN 20 MG TAB PO SCH (21:00)
[2018-12-19] MEDS ORDERED: INSULIN GLARGINE 100 UNITS/ML VIAL SQ SCH (09:00)
== END 2018-12-18 17:25 | disposition other institution (70) ==
LOC: CATH LAB 06:54 → IMCU 18:15
PROVIDERS: ADMIT Internal Medicine Cardiovascular Disease; ATTEND Internal Medicine Cardiovascular Disease
DX: I25.10 Atherosclerotic heart disease of native coronary artery without angina pectoris (principal); I50.23 Acute on chronic systolic (congestive) heart failure; I11.0 Hypertensive heart disease with heart failure; I48.0 Paroxysmal atrial fibrillation; Z79.01 Long term (current) use of anticoagulants; E11.9 Type 2 diabetes mellitus without complications; Z79.4 Long term (current) use of insulin
CPT/HCPCS: 36415 ×3; 71046; 80053; 82948 ×2; 85025; 85610; 85730; 93005; 93458; G0378 ×2; J2001; J2250; J7030; Q9967; C1769